=== PATIENT | female | born 1950 | race Caucasian/White ===

== ENCOUNTER → 2018-10-16 | Outpatient (CLI) | payer MEDICARE, OTHER ==
[~2018-10-16] MED LIST: ADULT LOW DOSE81 MG; LIPITOR20 MG; LISINOPRIL20 MG; NORCO 5-325 TA1 EACH; OXYIR5 MG PO; PERCOCET 5-3251 EACH PO
== END ==
LOC: M.RAD 10:28
DX: R05 Cough (principal); I70.0 Atherosclerosis of aorta; Z98.890 Other specified postprocedural states

== ENCOUNTER → 2019-03-19 | Outpatient (CLI) | payer MEDICARE, OTHER | LOC: M.RAD 09:22 | DX: M85.89 Other specified disorders of bone density and structure, multiple sites (principal); M81.0 Age-related osteoporosis without current pathological fracture; Z78.0 Asymptomatic menopausal state ==

== ENCOUNTER → 2019-10-08 | Outpatient (CLI) | payer OTHER | LOC: M.CT 07:23 | DX: Z13.6 Encounter for screening for cardiovascular disorders (principal); K44.9 Diaphragmatic hernia without obstruction or gangrene; R93.2 Abnormal findings on diagnostic imaging of liver and biliary tract ==

== ENCOUNTER → 2019-10-12 | Outpatient (CLI) | payer MEDICARE, OTHER ==
--- NOTE | 2019-10-12 16:38 | CARDNUC ---
[place] [address] CARDIAC NUCLEAR IMAGING REPORT Name: VALERIA COLON Room: [facility]#: [id number] Admission: 10/12/19 Attend Phys: Jarvis Vaughan, Discharge: Date of : 48 Date of Service: 10/12/19 1637 Report #: [id number] THIS REPORT FOR: cc: Marisa Oconnell MD, Katrina MD Liston, Michael J. MD [facility] ~ APPROVED REPORT Imaging Protocol: Stress Tc-99m/Rest Tc-99m 1 day Study performed: 10/12/2019 12:00:00 Indication: Dyspnea, Chest pressure. Patient Location: Out-Patient Stress Tech: Ruby Ochoa Stress Nurse: Radha Luna RN Ht: 5 ft 6 in Wt: 203 lbs BSA: 2.01 m2 BMI: 32.76 Medical History Medical History: Angina, HTN, Hyperlipidemia, SOB. Medications: Atorvastatin, Micardis, ASA 81 Mg. Allergies: No known drug allergies Cardiac Risk Factors: Age, FHX of CAD, HTN, Hyperlipidemia, SOB. Previous Cardiac Procedures: None Pretest Chest Pain Characteristics: No chest pain Exercise History: Indeterminate Physical Disabilities: Dyspnea. Meds Held (24 hrs): None Resting Data Rest SPECT myocardial perfusion imaging was performed in supine position 30 minutes following the intravenous injection of 9.7 mCi of Tc-99m Sestamibi. Time of rest injection: 12:50 Date: 10/12/2019 The images were gated to evaluate regional wall motion and calculate left ventricular ejection fraction. Administration Route: IV Administration Site: Right AC Pharmacologic Stress Pharmacologic stress test was performed by injecting Regadenoson 0.4 mg IV push over 10-15 seconds immediately [place] [address] CARDIAC NUCLEAR IMAGING REPORT Name: VALERIA COLON Room: [facility]#: [id number] Admission: 10/12/19 Attend Phys: Jarvis Vaughan, Discharge: Date of : 48 Date of Service: 10/12/19 1637 Report #: [id number] injection of 33.5 mCi of Tc-99m Sestamibi. Time of stress injection: 14:40 Date: 10/12/2019 Administration Route: IV Administration Site: Right AC Heart Rate at time of stress injection: 135 bpm. Gated Stress SPECT was performed 40 minutes after stress injection. The images were gated to evaluate regional wall motion and calculate left ventricular ejection fraction. Prone imaging was performed. Stress Test Details Stress Test: Pharmacologic stress was paired with low level exercise. Reason for pharmacologic stress test: Increased dyspnea.. HR Max Heart Rate (APMHR): 150 bpm Resting HR: 72 bpm Target HR (85% APMHR): 127 bpm Max HR Achieved: 135 bpm % of APMHR: 90 Recovery HR: 88 bpm BP Resting BP: 120/75 mmHg Max BP: 167/66 mmHg Recovery BP: 139/78 mmHg ECG Resting ECG: Sinus Rhythm Stress ECG: Sinus Rhythm ST Change: None Arrhythmia: None Recovery ECG: Sinus Rhythm Recovery ST Change: None Recovery Arrhythmia: None Clinical Reason for Termination: Completed protocol Stress Symptoms: Dyspnea, Lightheadedness. Exercise duration: 4 min 00 sec Exercise capacity: 2.30 METs The patient tolerated Lexiscan infusion without significant cardiac symptoms. Nurse Comments A 69 year old female presented for a walking Lexiscan r/t increased dyspnea and chest pressure. Test well [place] [address] CARDIAC NUCLEAR IMAGING REPORT Name: VALERIA COLON Room: [facility]#: [id number] Admission: 10/12/19 Attend Phys: Jarvis Vaughan, Discharge: Date of : 48 Date of Service: 10/12/19 1637 Report #: [id number] unremarkable with PO caffeine, effective. Patient was escorted by staff to [facility] for imaging. Patient was stable and stated she felt good at that time. Stress ECG Conclusion The baseline 12-lead EKG shows sinus rhythm without significant ST segment abnormality. EKGs obtained during and post Lexiscan infusion show sinus rhythm and sinus tachycardia with no significant ST segment changes when compared baseline. There were no stress-induced arrhythmias. Study Quality Study: Good Artifact: No artifact Study Data At rest, the left ventricular ejection fraction was 75%.. Post stress, the left ventricular ejection was 79%.. TID = 1.11. Perfusion Normal left ventricular perfusion. Wall Motion Normal left ventricular wall motion. Nuclear Conclusion ECG Findings: negative for ischemia Clinical Findings: negative for ischemia Nuclear Findings: negative for ischemia Exercise Capacity: not assessed Left Ventricular Function: normal Risk Study: low Myocardial perfusion images show no defect to suggest infarct or ischemia. Left ventricular systolic function appears normal on gated studies. This is a low risk study. <Conclusion> The baseline 12-lead EKG shows sinus rhythm without significant ST segment abnormality. EKGs obtained during and post Lexiscan infusion show sinus rhythm and sinus tachycardia with no significant [place] [address] CARDIAC NUCLEAR IMAGING REPORT Name: VALERIA COLON Room: [facility]#: [id number] Admission: 10/12/19 Attend Phys: Jarvis Vaughan, Discharge: Date of : 48 Date of Service: 10/12/19 1637 Report #: [id number] segment changes when compared baseline. There were no stress-induced arrhythmias. <ELECTRONICALLY SIGNED> By: Jarvis Vaughan MD, [facility] 10/12/19 1637 [id number] Jarvis Vaughan MD, FACC /INF
== END ==
LOC: M.NUC 10-07 15:31
DX: R06.09 Other forms of dyspnea (principal); E78.2 Mixed hyperlipidemia; I10 Essential (primary) hypertension

== ENCOUNTER → 2019-10-22 | Outpatient (CLI) | payer MEDICARE, OTHER | LOC: M.ULTRA 06:58 | DX: K76.89 Other specified diseases of liver (principal) ==

== ENCOUNTER → 2020-01-14 | Outpatient (CLI) | payer MEDICARE, OTHER | LOC: M.LAB 06:21 | PROVIDERS: ATTEND Internal Medicine Cardiovascular Disease | DX: E78.2 Mixed hyperlipidemia (principal); I10 Essential (primary) hypertension ==

== ENCOUNTER → 2020-01-21 | Outpatient (CLI) | payer MEDICARE, OTHER ==
[2020-01-21 08:34] LABS: ALBUMIN 3.3 g/dL (3.4-5.0); ALKALINE PHOSPHATASE 70 U/L (46-116); DIRECT BILIRUBIN 0.1 mg/dL (<0.1-0.3); SGOT 20 U/L (15-37); SGPT 24 U/L (30-65); TOTAL BILIRUBIN 0.4 mg/dL (<0.1-1.0); TOTAL PROTEIN 7.1 g/dL (6.4-8.2)
[2020-01-21 08:35] LABS: SERUM ASSESSMENT Clear
[2020-01-21 08:45] LABS: CHOLESTEROL 148 mg/dL (<200); HDL CHOLESTEROL 54 mg/dL (>40); LDL CHOLESTEROL 78 mg/dL (<100); TC:HDL 2.7 Ratio (Not establshd); TRIGLYCERIDE 80 mg/dL (<150); VLDL 16 mg/dL (<40)
== END ==
LOC: M.LAB 08:06
PROVIDERS: ATTEND Internal Medicine Cardiovascular Disease
DX: I10 Essential (primary) hypertension (principal); E78.2 Mixed hyperlipidemia

== ENCOUNTER → 2020-08-12 | Outpatient (CLI) | payer MEDICARE, OTHER ==
[2020-08-12 07:43] LABS: ALBUMIN 3.3 g/dL (3.4-5.0); ALKALINE PHOSPHATASE 77 U/L (46-116); CHOLESTEROL 152 mg/dL (<200); CK-MB MASS 1.2 ng/mL (<0.5-3.6); DIRECT BILIRUBIN 0.1 mg/dL (<0.1-0.3); HDL CHOLESTEROL 55 mg/dL (>40); LDL CHOLESTEROL 83 mg/dL (<100); SGOT 21 U/L (15-37); SGPT 21 U/L (30-65); TC:HDL 2.8 Ratio (Not establshd); TOTAL BILIRUBIN 0.4 mg/dL (<0.1-1.0); TOTAL PROTEIN 6.8 g/dL (6.4-8.2); TRIGLYCERIDE 72 mg/dL (<150); VLDL 14 mg/dL (<40)
[2020-08-12 08:10] LABS: SERUM ASSESSMENT Clear
== END ==
LOC: M.LAB 07:01
PROVIDERS: ATTEND Nurse Practitioner
DX: E78.2 Mixed hyperlipidemia (principal)